=== PATIENT | female | born 1975 | race Caucasian/White ===

== ENCOUNTER → 2023-04-07 08:49 | Outpatient (REF) | payer OTHER, SELFPAY | LOC: RAD 08:49 | PROVIDERS: ATTENDING PHYSICIAN Internal Medicine Gastroenterology; FAMILY PHYSICIAN Emergency Medicine | DX: R13.10 Dysphagia, unspecified (principal) | CPT/HCPCS: 74230; 92611 ==

== ENCOUNTER → 2023-11-02 12:09 | Outpatient (REF) | payer OTHER, SELFPAY | LOC: RAD 12:09 | PROVIDERS: ATTENDING PHYSICIAN Emergency Medicine | DX: M25.561 Pain in right knee (principal); Z87.828 Personal history of other (healed) physical injury and trauma | CPT/HCPCS: 73564 ==

== ENCOUNTER → 2023-11-12 14:08 | Outpatient (REF) | payer OTHER, SELFPAY | LOC: RAD 14:08 | PROVIDERS: ATTENDING PHYSICIAN Emergency Medicine | DX: Z87.828 Personal history of other (healed) physical injury and trauma (principal) | CPT/HCPCS: 70486 ==

== ENCOUNTER → 2023-11-27 15:11 | Outpatient (REF) | payer OTHER, SELFPAY | LOC: WDC 15:11 | PROVIDERS: ATTENDING PHYSICIAN Emergency Medicine | DX: Z12.31 Encounter for screening mammogram for malignant neoplasm of breast (principal) | CPT/HCPCS: 77063; 77067 ==

== ENCOUNTER → 2023-12-15 15:04 | Outpatient (REF) | payer OTHER, SELFPAY ==
--- NOTE | 2023-12-15 16:15 | CARDSERVLU ---
Echocardiogram with Lumason completed after protocol screening completed. Allergies verified.
Patent IV site: right hand
IV site flushed with 0.9% NaCl pre and post administration.
Diluted bolus method utilized to enhance visualization of ventricular amor.
Total volume given: 4 mL
Patient tolerated all procedures well without complications.
== END ==
LOC: RCS 15:04
PROVIDERS: ATTENDING PHYSICIAN Internal Medicine Cardiovascular Disease; FAMILY PHYSICIAN Emergency Medicine
DX: R06.09 Other forms of dyspnea (principal)
CPT/HCPCS: 93306; Q9950

== ENCOUNTER → 2024-01-01 13:06 | Outpatient (REF) | payer OTHER, SELFPAY | LOC: RCS 13:06 | PROVIDERS: ATTENDING PHYSICIAN Internal Medicine Cardiovascular Disease; FAMILY PHYSICIAN Emergency Medicine | DX: R06.09 Other forms of dyspnea (principal) | CPT/HCPCS: 93017 ==

== ENCOUNTER → 2024-04-26 08:53 | Outpatient (REF) | payer OTHER, SELFPAY | LOC: RSP 08:53 | PROVIDERS: ATTENDING PHYSICIAN Internal Medicine Cardiovascular Disease; FAMILY PHYSICIAN Emergency Medicine | DX: R06.09 Other forms of dyspnea (principal) | CPT/HCPCS: 94727; 94729; 88738; 94060 ==

== ENCOUNTER → 2024-07-14 10:30 | Outpatient (REF) | payer OTHER, SELFPAY | LOC: DHSLP 10:30 | PROVIDERS: ATTENDING PHYSICIAN Internal Medicine; FAMILY PHYSICIAN Emergency Medicine | DX: G47.00 Insomnia, unspecified (principal); R06.83 Snoring | CPT/HCPCS: 95810 ==

== ENCOUNTER → 2025-01-04 18:00 | Outpatient (REF) | payer OTHER, SELFPAY | LOC: RAD 18:00 | PROVIDERS: ATTENDING PHYSICIAN Nurse Practitioner Family | DX: M79.646 Pain in unspecified finger(s) (principal); R92.30 Dense breasts, unspecified | CPT/HCPCS: 73120 ==